=== PATIENT | female | born 1950 | race Caucasian/White ===

== ENCOUNTER 2016-07-22 06:07 | Inpatient (IN) | payer MEDICARE, BC ==
[2016-07-16 10:40] LABS: BASOPHILS 0.6 %; BASOPHILS ABSOLUTE 0.04 10/3/uL (0.0-0.16); EOSINOPHILS 4.3 %; EOSINOPHILS ABSOLUTE 0.29 10/3/uL (0.0-0.53); HEMOGLOBIN 12.2 g/dL (12.0-16.0); IMMATURE GRANULOCYTES 0.1 %; IMMATURE GRANULOCYTES ABSOLUTE 0.01 10/3/uL (0.0-0.11); LYMPHOCYTES 28.4 %; MEAN CORPUS HGB CONC 33.8 g/dL (32.0-36.0); MEAN CORPUSCULAR HEMOGLOB 30.6 pg (26.0-34.0); MEAN CORPUSCULAR VOLUME 90.5 fL (80-100); MEAN PLATELET VOLUME 10.9 fL (9.2-13.0); MONOCYTES 6.3 %; MONOCYTES ABSOLUTE 0.42 10/3/uL (0.21-1.20); NEUTROPHILS 60.3 %; NEUTROPHILS ABSOLUTE 4.03 10/3/uL (2.02-8.40); PLATELET COUNT 212 10/3/uL (150-400); RBC DISTRIBUTION WIDTH 12.8 % (12.0-16.0); RED CELL COUNT 3.99 10/6/uL (4.0-5.6); WHITE BLOOD CELLS 6.7 10/3/uL (4.5-10.5)
[2016-07-16 10:41] LABS: HEMATOCRIT 36.1 % (36.0-48.0); MANUAL DIFF NO %
[2016-07-16 10:45] LABS: PROTIME (NOT ORD) 13.1 SEC (12.0-14.5)
[2016-07-16 10:52] LABS: A/G RATIO 1.2 (0.7-1.9); ALBUMIN 4.3 G/DL (3.5-5.0); BUN (BLOOD UREA NITROGEN) 24 MG/DL (6-23); CALCIUM, SERUM 9.5 MG/DL (8.5-10.4); CHLORIDE, SERUM 104 MMOL/L (96-112); GFR AFRICAN AMERICAN 49 ML/MIN (>=60); GFR NON AFRICAN AMERICAN 42 ML/MIN (>=60); GLOBULIN 3.6 G/DL (2.5-4.1); SGOT(AST) 21 U/L (5-40); SGPT(ALT) 18 U/L (5-65); SODIUM, SERUM 141 MMOL/L (135-148); TOTAL BILIRUBIN 0.5 MG/DL (0-1.2); TOTAL PROTEIN 7.9 G/DL (6.0-8.5)
[2016-07-16 10:54] LABS: ALKALINE PHOSPHATASE 112 U/L (45-117); CO2 (CARBON DIOXIDE) 31 MMOL/L (24-34); GLUCOSE, SERUM 88 MG/DL (60-99); POTASSIUM, SERUM 3.7 MMOL/L (3.5-5.3)
[2016-07-16 11:59] LABS: ASCORBIC ACID (UR NOT ORDER) NEG (NEG); BILIRUBIN, URINE NEGATIVE (NEG); KETONE, URINE NEGATIVE (NEG); LEUKOCYTE ESTERASE(NOT OR SMALL (NEG); WBC (NOT ORDERED) (RFLEX) 1 (0-5)
--- NOTE | ~2016-07-22 | OP ---
Record Of Operation [facility] [address] [place]. [address] NAME: SAMSON VASQUEZ : 46 STATUS : ADM IN PAT#: [id number] AGE: 65 ADM/REG DATE : 07/22/16 MR#: [id number] REPORT SERV DATE: 07/22/16 DICTATED BY: KALLIE RANKIN DATE: 07/22/16 REPORT STATUS : Draft TRANSCRIBED BY: MODL DATE: 07/22/16 DATE OF PROCEDURE: 07/22/2016 PREOPERATIVE DIAGNOSIS: Right knee arthritis. POSTOPERATIVE DIAGNOSIS: Right knee arthritis. PROCEDURE PERFORMED: Right total knee arthroplasty. SURGEON: Kallie Rankin M.D. FILBERT GROWER: James Suárez. ANESTHESIA: General with local infusion. PROCEDURE IN DETAIL: The patient is clearly identified and after obtaining informed consent is brought to the operating room at [facility] where anesthesia is induced uneventfully with excellent anesthetic effect. Subsequently, the affected extremity is prepped and draped in the usual manner and after an appropriate time-out procedure is performed, via an anterior approach, the skin is divided, fascial planes are elevated, paramedial approach to the knee is made. The structures themselves are elevated, excised, and debrided were appropriate, whereupon the patella is carefully everted, calipered, and planed and with the size and type being reproduced with the appropriate-size patella, trialing is performed successfully. At this point, the patella is then carefully subluxed laterally, the knee is flexed, osteophytes around the distal femur are removed, followed by the ACL being divided. The femoral canal is entered and vented, at which point with the intramedullary guide being utilized, the distal femoral cut is made. At this point, the tibia is carefully subluxed anteriorly. The surrounding soft tissues to the tibia are protected with Hohmann retractors, at which point the extramedullary guide is utilized to perform the proximal tibial cut and after cleansing these tissues, the spacer block is utilized in extension to confirm excellent extension, stability, and alignment. The guiding pins are then all carefully removed and the knee is then flexed. The femur is sized, whereupon the anterior, posterior, chamfer, and box cuts are made appropriately. The proximal tibia then is assessed. Osteophytes and surrounding soft tissues are removed and debrided were appropriate. Posterior osteophytes are removed as well. The menisci are excised and thus concluding trialings performed successfully. The proximal tibia then is carefully prepared utilizing proper cement technique. The permanent implants have been carefully placed into position uneventfully where upon copious irrigations performed, the permanent tibial implants applied and thus concluded. The joint was then copiously irrigated, at which point it is closed carefully in layers including Vicryl and keshawn for the skin, at which point Aquacel sterile dressing is applied. The patient is allowed to awaken and is transferred to the bed and subsequently to the recovery room in stable condition having tolerated the procedure well. ESTIMATED BLOOD LOSS: 50 mL. Record Of Operation [facility] [address] [place]. [address] NAME: SAMSON VASQUEZ : 46 STATUS : ADM IN [facility]#: [id number] AGE: 65 ADM/REG DATE : 07/22/16 MR#: [id number] REPORT SERV DATE: 07/22/16 DICTATED BY: KALLIE RANKIN DATE: 07/22/16 REPORT STATUS : Draft TRANSCRIBED BY: HOLLEY DATE: 07/22/16 FLUIDS: 1100 mL. TOURNIQUET TIME: 39 minutes. PATHOLOGY: Sent specimen. MICROBIOLOGY: None. COMPLICATIONS: None. SPONGE AND NEEDLE COUNTS: Reportedly correct. ANTIBIOTICS: Administered appropriately preoperatively and ordered to be discontinued within 23 hours. IMPLANTS: Attune knee by DePuy, femur 6 narrow, tibia 6, patella 38, polyethylene 6/5. STACEY/HOLLEY Kallie Rankin M.D. / [id number] CC: Kallie Rankin M.D.
[~2016-07-22 06:07] MED LIST: DURA75 TOP; HYZAAR 50/12.51 TAB PO; LIPITOR40 PO; LUNESTA1 MG PO; MELATONIN10 M2 PO; OXYCON10 PO; ROXICODONE15 MG PO; SINEQUAN 75 MG75 MG PO; SONATA PO; XANAX1 MG PO; ZANAFLEX2 MG PO
[2016-07-23 04:38] LABS: HEMATOCRIT 28.8 % (36.0-48.0)
[2016-07-23 04:43] LABS: INTERNATIONAL NORMAL RATI 1.3 UNITS (-); PROTIME (NOT ORD) 16.1 SEC (12.0-14.5)
[2016-07-23 04:52] LABS: CHLORIDE, SERUM 105 MMOL/L (96-112); CO2 (CARBON DIOXIDE) 27 MMOL/L (24-34); CREATININE 1.33 MG/DL (0.55-1.02); GFR AFRICAN AMERICAN 48 ML/MIN (>=60); GFR NON AFRICAN AMERICAN 41 ML/MIN (>=60); POTASSIUM, SERUM 3.8 MMOL/L (3.5-5.3); SODIUM, SERUM 140 MMOL/L (135-148)
[2016-07-23 04:53] LABS: BUN (BLOOD UREA NITROGEN) 20 MG/DL (6-23); CALCIUM, SERUM 8.5 MG/DL (8.5-10.4); GLUCOSE, SERUM 165 MG/DL (60-99)
[2016-07-24 05:01] LABS: BASOPHILS 0.4 %; BASOPHILS ABSOLUTE 0.03 10/3/uL (0.0-0.16); EOSINOPHILS 4.4 %; EOSINOPHILS ABSOLUTE 0.36 10/3/uL (0.0-0.53); HEMATOCRIT 28.8 % (36.0-48.0); HEMOGLOBIN 9.6 g/dL (12.0-16.0); IMMATURE GRANULOCYTES 0.1 %; IMMATURE GRANULOCYTES ABSOLUTE 0.01 10/3/uL (0.0-0.11); LYMPHOCYTES 22.1 %; LYMPHOCYTES ABSOLUTE 1.79 10/3/uL (0.67-4.30); MEAN CORPUS HGB CONC 33.3 g/dL (32.0-36.0); MEAN CORPUSCULAR HEMOGLOB 30.1 pg (26.0-34.0); MEAN CORPUSCULAR VOLUME 90.3 fL (80-100); MEAN PLATELET VOLUME 10.5 fL (9.2-13.0); MONOCYTES ABSOLUTE 0.57 10/3/uL (0.21-1.20); NEUTROPHILS ABSOLUTE 5.35 10/3/uL (2.02-8.40); PLATELET COUNT 185 10/3/uL (150-400); RBC DISTRIBUTION WIDTH 13.1 % (12.0-16.0); WHITE BLOOD CELLS 8.1 10/3/uL (4.5-10.5)
[2016-07-24 05:05] LABS: MANUAL DIFF NO %; RED CELL COUNT 3.19 10/6/uL (4.0-5.6)
[2016-07-24 05:09] LABS: INTERNATIONAL NORMAL RATI 1.6 UNITS (-)
[2016-07-24 05:13] LABS: PROTIME (NOT ORD) 19.3 SEC (12.0-14.5)
[2016-07-24 05:16] LABS: BUN (BLOOD UREA NITROGEN) 19 MG/DL (6-23); CALCIUM, SERUM 8.7 MG/DL (8.5-10.4); CHLORIDE, SERUM 107 MMOL/L (96-112); CO2 (CARBON DIOXIDE) 29 MMOL/L (24-34); CREATININE 1.16 MG/DL (0.55-1.02); GFR AFRICAN AMERICAN 56 ML/MIN (>=60); GFR NON AFRICAN AMERICAN 49 ML/MIN (>=60); SODIUM, SERUM 141 MMOL/L (135-148)
[2016-07-24 05:17] LABS: GLUCOSE, SERUM 103 MG/DL (60-99)
[2016-07-24] MEDS ORDERED: MVI PO (14:13)
[2016-07-24] MEDS ORDERED: C5 PO (14:14)
[2016-07-24] MEDS ORDERED: ROXICODONE15 MG PO (14:15)
== END 2016-07-24 16:20 | DRG 470 ==
LOC: SDC/OF 06:07 → PACU 10:54 → 1SO 12:16
PROVIDERS: Orthopaedic Surgery
PROC: 0SRC0J9 Replacement of Right Knee Joint with Synthetic Substitute, Cemented, Open Approach (ICD-10-PCS; principal; 2016-07-22 07:45)
DX: M17.11 Unilateral primary osteoarthritis, right knee (principal); I10 Essential (primary) hypertension; E78.5 Hyperlipidemia, unspecified; G89.29 Other chronic pain; M79.7 Fibromyalgia; E78.00 Pure hypercholesterolemia, unspecified; I89.0 Lymphedema, not elsewhere classified; K58.9 Irritable bowel syndrome, unspecified; F32.9 Major depressive disorder, single episode, unspecified; Z79.891 Long term (current) use of opiate analgesic; Z79.899 Other long term (current) drug therapy; Z88.8 Allergy status to other drugs, medicaments and biological substances
CPT/HCPCS: 36415; 71020; 80048; 80053; 81001; 85014; 85018; 85025; 85610; 85730; 86850; 86900; 86901; 87086; 87641; 88305; 88311; 93005; 97110-GP; 97116-GP; 97161-GP; 97165-GO; A9270-GY; C1776; G8978-CK-GP; G8979-CI-GP; G8987-CJ-GO; G8988-CJ-GO; G8989-CJ-GO; J0690; J1170; J1885; J2250; J2274; J2370; J2405; J2710; J2795; J3010